=== PATIENT | female | born 1940 | race Caucasian/White ===

== ENCOUNTER 2018-12-13 20:47 | Emergency (ER) | payer MEDICARE ==
[~2018-12-13] VITALS: Ht 170.2 cm; Wt 77.3 kg
[2018-12-13 20:59] VITALS: BP 157/85
[2018-12-13] MEDS ORDERED: LIDOcaine 1% 30ml preserv. free vial IJ ONE (21:05)
--- NOTE | 2018-12-13 21:16 | NUR ---
Patient sitting comfortably on gurney, waiting for MD to suture laceration.
== END 2018-12-13 22:44 | disposition home or self-care (01) ==
LOC: ER 20:49
DX: S81.811A Laceration without foreign body, right lower leg, initial encounter (principal); I10 Essential (primary) hypertension; E03.9 Hypothyroidism, unspecified; Z88.8 Allergy status to other drugs, medicaments and biological substances; W22.8XXA Striking against or struck by other objects, initial encounter; Y93.89 Activity, other specified; Y92.89 Other specified places as the place of occurrence of the external cause; Y99.8 Other external cause status
CPT/HCPCS: 12002; 99283; J2001